=== PATIENT | female | born 1990 | race Caucasian/White ===

== ENCOUNTER 2020-05-28 07:58 | Emergency (ER) | payer MEDICAID ==
[2020-05-28 09:06] LABS: ABSOLUTE EOSINOPHILS # (AUTO) 0.2 10^3/uL (0.0-0.6); ABSOLUTE LYMPHOCYTES (AUTO) 1.7 10^3/uL (0.5-4.7); ABSOLUTE MONOCYTES (AUTO) 0.5 10^3/uL (0.1-1.4); ABSOLUTE NEUT (AUTO) 5.4 10^3/uL (1.7-8.2); BASOPHILS % (AUTO) 0.6 % (0-2); EOSINOPHILS % (AUTO) 2.5 % (0-6); HEMATOCRIT 41.2 % (36.0-47.0); HEMOGLOBIN 13.7 g/dL (12.0-15.5); MEAN CORPUSCULAR HEMOGLOBIN 28.9 pg (27.0-33.4); MEAN CORPUSCULAR HGB CONC 33.2 g/dL (32.0-36.0); MEAN CORPUSCULAR VOLUME 87 fl (80-97); MONOCYTES % (AUTO) 6.5 % (3-13); PLATELET COUNT 366 10^3/uL (150-450); RED BLOOD COUNT 4.74 10^6/uL (3.72-5.28); RED CELL DISTRIBUTION WIDTH 13.8 % (11.5-14.0); SEGMENTED NEUTROPHILS % (AUTO) 68.4 % (42-78); TOTAL CELLS COUNTED % (AUTO) 100 %; WHITE BLOOD COUNT 7.9 10^3/uL (4.0-10.5)
[2020-05-28] MEDS ORDERED: ONDANSETRON 4 MG TAB.RAPDIS PO ONE (09:15)
[2020-05-28 09:18] LABS: ALBUMIN 4.5 g/dL (3.5-5.0); ALKALINE PHOSPHATASE 95 U/L (38-126); ANION GAP 7 (5-19); ASPARTATE AMINO TRANSFERASE 20 U/L (14-36); BILIRUBIN,TOTAL 0.8 mg/dL (0.2-1.3); BLOOD UREA NITROGEN 11 mg/dL (7-20); CALCIUM 9.7 mg/dL (8.4-10.2); CARBON DIOXIDE 27 mmol/L (22-30); CHLORIDE 104 mmol/L (98-107); GLUCOSE 111 mg/dL (75-110); POTASSIUM 4.4 mmol/L (3.6-5.0); TOTAL PROTEIN 7.2 g/dL (6.3-8.2)
--- NOTE | 2020-05-28 09:22 | ER Document Report ---
ED General - General Chief Complaint: Flank Pain Stated Complaint: FLANK PAIN, PAINFUL URINATION Time Seen by Provider: 05/28/20 08:20 Notes: 30-year-old female with past medical history kidney stone, multiple UTIs. Presenting today with continued pain with urination, gross hematuria, bilateral flank pain for approximately 2-1/2 weeks. States she [facility] shot and oral medication for 7 days. She completed the medication but has continued to have pain with urination and now has developed the bilateral flank pain. She states she has had an intermittent fever at home. Says it was up to 101 yesterday which she took Tylenol for last dose of Tylenol was 5:30 PM. She is afebrile currently in the emergency department. She has no white or yellow vaginal discharge. States her discharge is normal. She states that she also now has intermittent tingling in her hands and her feet. She has Nexplanon. She was last sexually active 3 months ago. States her last menstrual period was 6 months ago. Denies any additional symptoms at this time. TRAVEL OUTSIDE OF THE [place] IN LAST 30 DAYS: No - Related Data Allergies/Adverse Reactions: No Known Allergies Allergy (Verified 02/26/17 11:57) Past Medical History - Social History Smoking Status: Never Smoker Frequency of alcohol use: None Drug Abuse: None Family History: Reviewed & Not Pertinent Renal/ Medical History: Denies: Hx Peritoneal Dialysis Psychiatric Medical History: Reports: Hx Anxiety, Hx Depression Past Surgical History: Reports: Hx Appendectomy - Immunizations Hx Diphtheria, Pertussis, Tetanus Vaccination: Yes Review of Systems - Review of Systems Constitutional: See HPI EENT: No symptoms reported Cardiovascular: No symptoms reported Respiratory: No symptoms reported Gastrointestinal: See HPI Genitourinary: See HPI Female Genitourinary: No symptoms reported Musculoskeletal: No symptoms reported Physical Exam - Vital signs Vitals: Temp Pulse Resp BP Pulse Ox 98.5 F 83 18 110/67 99 05/28/20 08:20 05/28/20 08:20 05/28/20 08:20 05/28/20 08:20 05/28/20 08:20 - Notes Notes: Adult General: GENERAL: Alert, interacts well. No acute distress HEAD: Normocephalic, atraumatic EYES: Pupils equal, round and reactive to light. Extraocular movements intact. ENT: Airway patent. Nares patent. NECK: Full range of motion. Supple. Trachea midline. LUNGS: Clear to auscultation bilaterally, no wheezes, rales, or rhonchi. No respiratory distress. Nontender chest wall. HEART: Regular rate and rhythm. No murmurs, rubs or gallops. ABDOMEN: Soft, nontender. Nondistended. (-) [place] sign. Bowel sounds present in all 4 quadrants. No rebound, guarding or masses. GENITOURINARY: Deferred EXTREMITIES: Moves all 4 extremities spontaneously. No edema, normal radial and dorsal pedis pulses bilaterally. No cyanosis. BACK: bilateral cva tenderness. No cervical, thoracic, lumbar midline tenderness. No saddle anesthesia, normal distal neurovascular exam. Moves all extremities with full range of motion. NEUROLOGICAL: Alert and oriented x3. Normal speech. Cranial nerves II through XII grossly intact. Strength 5/ 5 in all extremities. PSYCH: Normal affect, normal mood. SKIN: Warm, dry, normal turgor. No rashes or lesions noted. Course - Re-evaluation Re-evalutation: 05/28/20 22:52 I discussed findings of CT and urinalysis with the patient. Ct scan shows no significant findings to include no kidney infection or stone. Urinalysis is unremarkable. V/s are unremarkable. Patient is agreeable to self swab for a wet mount. Defers pelvic exam. Wet mount shows signs of bacterial vaginosis. I discussed findings with the patient. I also discussed that we are pending G/C testing. I will treat patient for bacterial vaginosis. I will also treat patient for a UTI based on her symptoms. Patient is agreeable to this plan. I also recommend patient follow up with her primary care as soon as possible. I also discussed return precautions to the emergency department to include worsening symptoms and the development of new symptoms. Patient acknowledges and verbalizes understanding of instructions and plan. 05/28/20 22:57 05/28/20 22:58 - Vital Signs Vital signs: Temp Pulse Resp BP Pulse Ox 98.2 F 71 16 102/64 99 05/28/20 11:36 05/28/20 11:36 05/28/20 11:36 05/28/20 11:36 05/28/20 11:36 - Laboratory Result Diagrams: 05/28/20 08:25 05/28/20 08:25 Laboratory results interpreted by me: 05/28/20 05/28/20 08:25 08:25 Glucose 111 H Urine Protein 30 H Urine Urobilinogen 2.0 H Discharge - Discharge Clinical Impression: Pain with urination, Bacterial vaginosis Condition: Stable Disposition: HOME, SELF-CARE Instructions: Metronidazole ([facility]), Toradol Injection ([facility]), Vaginosis, Bacterial ([facility]) Additional Instructions: You are being treated for bacterial vaginosis. Your CT scan shows no acute findings to include kidney stones or kidney infection. I will also go ahead and symptomatically treat you for UTI as I do have concerns that this is still an underlying cause of your symptoms at this time. We are pending the results of your cultures at this time. Please take medication as prescribed. Please do not drink alcohol with this medication. Follow-up with your primary care provider soon as possible. You may return to the emergency department if you have worsening symptoms or development of new symptoms. Prescriptions: Ketorolac Tromethamine [Toradol 10 mg Tablet] 10 mg PO Q6HP PRN 3 Days #10 tablet PRN Reason: Metronidazole [Flagyl 500 mg Tablet] 500 mg PO Q12 7 Days #14 tablet Cephalexin Monohydrate [Keflex 500 mg Capsule] 500 mg PO Q6H 5 Days #20 capsule Phenazopyridine HCl [Pyridium 200 mg Tablet] 200 mg PO TID #15 tablet
[2020-05-28 09:45] LABS: APPEARANCE,URINE SLIGHTLY-CLOUDY; BILIRUBIN,URINE NEGATIVE (NEGATIVE); CALCIUM OXALATE CRYSTALS,URINE FEW /HPF; COLOR,URINE DARK YELLOW; GLUCOSE, URINE NEGATIVE (NEGATIVE); KETONES,URINE NEGATIVE (NEGATIVE); LEUKOCYTE ESTERASE,URINE NEGATIVE (NEGATIVE); NITRITE,URINE NEGATIVE (NEGATIVE); PROTEIN,URINE 30 mg/dL (NEGATIVE); URINE SPECIFIC GRAVITY 1.028
--- NOTE | 2020-05-28 10:37 | RADIOLOGY REPORT (SQ) ---
EXAM DESCRIPTION: CT ABD/PELVIS NO ORAL OR IV IMAGES COMPLETED DATE/TIME: 05/28/2020 10:08 am REASON FOR STUDY: flank pain COMPARISON: None. TECHNIQUE: CT scan of the abdomen and pelvis performed without intravenous or oral contrast. Images reviewed with lung, soft tissue, and bone windows. Reconstructed coronal and sagittal MPR images revi ewed. All images stored on PACS. All CT scanners at this facility use dose modulation, iterative reconstruction, and/or weight based d osing when appropriate to reduce radiation dose to as low as reasonably achievable (ALARA). [facility]: Dose Right [facility]: CareDose [facility]: Dose Right [facility]: Teradose 4D [facility]: [place] RADIATION DOSE: CT Rad equipment meets quality standard of care and radiation dose reduction techniq ues were employed. CTDIvol: 7.7 mGy. DLP: 415 mGy-cm.mGy. LIMITATIONS: None. FINDINGS: LOWER CHEST: No significant findings. No nodules or infiltrates. NON-CONTRASTED LIVER, SPLEEN, ADRENALS: Evaluation limited by lack of IV contrast. No identified sign ificant masses. PANCREAS: No masses. No peripancreatic inflammatory changes. GALLBLADDER: No identified stones by CT criteria. No inflammatory changes to suggest cholecystitis. RIGHT KIDNEY AND URETER: No suspicious masses. Assessment limited by lack of IV contrast. No signif icant calcifications. No hydronephrosis or hydroureter. LEFT KIDNEY AND URETER: No suspicious masses. Assessment limited by lack of IV contrast. No signifi cant calcifications. No hydronephrosis or hydroureter. AORTA AND RETROPERITONEUM: No aneurysm. No retroperitoneal masses or adenopathy. BOWEL AND PERITONEAL CAVITY: No obvious masses or inflammatory changes. No free fluid. APPENDIX: Surgically absent. PELVIS, BLADDER, AND ABDOMINAL WALL:No abnormal masses. No free fluid. Bladder normal. BONES: There is lumbar scoliosis with concavity toward the right. OTHER: No other significant finding. IMPRESSION: NO SIGNIFICANT OR ACUTE PROCESS IN THE ABDOMEN OR PELVIS. COMMENT: Quality ID # [id number]: Final reports with documentation of one or more dose reduction techniques (e.g., Automated exposure control, adjustment of the mA and/or kV according to patient size, use of iterative reconstruction technique) TECHNICAL DOCUMENTATION: JOB ID: [id number] 2010 [employer]- All Rights Reserved Reading location - IP/workstation name: [email or web address]
[2020-05-28] MEDS ORDERED: NORMAL SALINE 1000 ML 1,000 ML IV ONE (10:39)
[2020-05-28] MEDS ORDERED: KETOROLAC TROMETHAMINE INJ/PF 30 MG/1 ML SDV IM ONE (10:43)
[2020-05-28] MEDS ORDERED: KETOROLAC TROMETHAMINE INJ/PF 30 MG/1 ML SDV IV ONE (10:48)
[2020-05-28 10:51] LABS: BACTERIA (WET MOUNT) 4+ BACTERIA SEEN; EPITHELIALS (WET MOUNT) 4+ EPITHELIALS SEEN; T.VAGINALIS (WET MOUNT) NO TRICHOMONAS SEEN; WBCS (WET MOUNT) RARE WBCS SEEN; YEAST (WET MOUNT) NO YEAST SEEN
[2020-05-28] MEDS ORDERED: CEFTRIAXONE INJ 1000 MG VIAL IV ONE (11:23)
[2020-05-28] MEDS ORDERED: CEFTRIAXONE 1 GM/D5W RTU 1 GM/50 ML RTUPB IV ONE (11:25)
[2020-05-28 11:39] VITALS: BP 102/64
[2020-05-28 11:51] LABS: CHLAM PCR NOT DETECTED (NOT DETECT)
== END 2020-05-28 12:18 | disposition home or self-care (01) ==
LOC: ER 07:58
DX: N76.0 Acute vaginitis (principal); B96.89 Other specified bacterial agents as the cause of diseases classified elsewhere; R30.0 Dysuria; R10.9 Unspecified abdominal pain; Z87.442 Personal history of urinary calculi; Z87.440 Personal history of urinary (tract) infections
CPT/HCPCS: 99284; 96361; 96375; 96365; 36415; 87086; 87210; 82550; 83690; 84703; 85025; 80053; 81001; 87491; 87591; 74176; S0119; J1885; J7030; J0696

== ENCOUNTER 2020-10-21 11:17 | Emergency (ER) | payer MEDICAID ==
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
--- NOTE | 2020-10-21 12:53 | RADIOLOGY REPORT (SQ) ---
EXAM DESCRIPTION: KNEE RIGHT 4 VIEWS IMAGES COMPLETED DATE/TIME: 10/21/2020 12:33 pm REASON FOR STUDY: R knee pain x 3 weeks, worse w/ time, no trauma COMPARISON: None. NUMBER OF VIEWS: Four views. TECHNIQUE: AP, lateral, and both oblique radiographic images acquired of the right knee. LIMITATIONS: None. FINDINGS: MINERALIZATION: Normal. BONES: No acute fracture or dislocation. No worrisome bone lesions. JOINT: Small effusion. SOFT TISSUES: No soft tissue swelling. No radio-opaque foreign body. OTHER: No other significant finding. IMPRESSION: Small joint effusion. TECHNICAL DOCUMENTATION: JOB ID: [id number] 2010 [employer]- All Rights Reserved Reading location - IP/workstation name: [email or web address]
[2020-10-21 13:17] LABS: AMORPHOUS SEDIMENT,URINE TRACE /HPF; APPEARANCE,URINE CLOUDY; BILIRUBIN,URINE NEGATIVE (NEGATIVE); COLOR,URINE AMBER; GLUCOSE, URINE NEGATIVE (NEGATIVE); KETONES,URINE NEGATIVE (NEGATIVE); LEUKOCYTE ESTERASE,URINE LARGE (NEGATIVE); NITRITE,URINE NEGATIVE (NEGATIVE); PROTEIN,URINE 100 mg/dL (NEGATIVE); URINE SPECIFIC GRAVITY 1.023; UROBILINOGEN,URINE NEGATIVE mg/dL (<2.0)
[2020-10-21] MEDS ORDERED: KETOROLAC TROMETHAMINE 60 MG/2 ML SDV IM ONE (13:47)
--- NOTE | 2020-10-21 13:47 | ER Document Report ---
ED General - General Chief Complaint: Vomiting Stated Complaint: PAINFUL URINATION,VOMITING Time Seen by Provider: 10/21/20 12:04 TRAVEL OUTSIDE OF THE [place] IN LAST 30 DAYS: No - Related Data Allergies/Adverse Reactions: No Known Allergies Allergy (Verified 10/21/20 12:02) Home Medications: multivitamins Past Medical History - Social History Smoking Status: Current Every Day Smoker Chew tobacco use (# tins/day): No Frequency of alcohol use: None Drug Abuse: None Family History: Reviewed & Not Pertinent Patient has homicidal ideation: No Renal/ Medical History: Denies: Hx Peritoneal Dialysis Psychiatric Medical History: Reports: Hx Anxiety, Hx Depression Past Surgical History: Reports: Hx Appendectomy - Immunizations Hx Diphtheria, Pertussis, Tetanus Vaccination: Yes Physical Exam - Vital signs Vitals: Temp Pulse Resp BP Pulse Ox 97.9 F 84 20 111/69 96 10/21/20 11:26 10/21/20 11:26 10/21/20 11:26 10/21/20 11:26 10/21/20 11:26 Course - Vital Signs Vital signs: Temp Pulse Resp BP Pulse Ox 97.9 F 84 20 111/69 96 10/21/20 11:26 10/21/20 11:26 10/21/20 11:26 10/21/20 11:26 10/21/20 11:26 - Laboratory Laboratory results interpreted by me: 10/21/20 12:32 Urine Protein 100 H Ur Leukocyte Esterase LARGE H
[2020-10-21 13:55] LABS: T.VAGINALIS (WET MOUNT) NO TRICHOMONAS SEEN; WBCS (WET MOUNT) FEW WBCS SEEN; YEAST (WET MOUNT) NO YEAST SEEN
[2020-10-21 14:06] LABS: ABSOLUTE BASOPHILS # (AUTO) 0.1 10^3/uL (0.0-0.2); ABSOLUTE EOSINOPHILS # (AUTO) 0.2 10^3/uL (0.0-0.6); ABSOLUTE LYMPHOCYTES (AUTO) 2.1 10^3/uL (0.5-4.7); ABSOLUTE MONOCYTES (AUTO) 0.4 10^3/uL (0.1-1.4); ABSOLUTE NEUT (AUTO) 6.2 10^3/uL (1.7-8.2); BASOPHILS % (AUTO) 0.6 % (0-2); EOSINOPHILS % (AUTO) 2.6 % (0-6); HEMOGLOBIN 13.7 g/dL (12.0-15.5); LYMPHOCYTES % (AUTO) 23.5 % (13-45); MEAN CORPUSCULAR HEMOGLOBIN 28.7 pg (27.0-33.4); MEAN CORPUSCULAR HGB CONC 33.5 g/dL (32.0-36.0); MEAN CORPUSCULAR VOLUME 86 fl (80-97); MONOCYTES % (AUTO) 4.7 % (3-13); PLATELET COUNT 374 10^3/uL (150-450); RED BLOOD COUNT 4.78 10^6/uL (3.72-5.28); RED CELL DISTRIBUTION WIDTH 13.4 % (11.5-14.0); SEGMENTED NEUTROPHILS % (AUTO) 68.6 % (42-78); TOTAL CELLS COUNTED % (AUTO) 100 %
--- NOTE | 2020-10-21 14:08 | ER Document Report ---
ED GI/ - General Chief Complaint: Vomiting Stated Complaint: PAINFUL URINATION,VOMITING Time Seen by Provider: 10/21/20 12:04 Primary Care Provider: SARA SINGLETON MD [ACTIVE STAFF] - Follow up as needed GURINDER FERRER DO [ACTIVE STAFF] - Follow up as needed TRAVEL OUTSIDE OF THE [place] IN LAST 30 DAYS: No - HPI Notes: 10/21/20 14:04 Patient is a 30-year-old female who presents with multiple complaints. Patient states that her partner cheated on her about 1 month ago. She states that about 1 month ago, she had white vaginal discharge and dysuria. She attributed this to a yeast infection so she took [id number] medication and it resolved. Patient states that symptoms returned several days ago. She states she has a white thin discharge. She also states she has some hematuria and dysuria. Patient denies fevers or chills. She mentions that she has had several weeks of right knee pain that is worse with movement and feels achy. She denies any redness. No trauma. Patient states she took Tylenol. She is concerned that she may have an STD. Patient states she does have a history of herpes. 10/21/20 21:22 - Related Data Allergies/Adverse Reactions: No Known Allergies Allergy (Verified 10/21/20 12:02) Home Medications: multivitamins Past Medical History - General Information source: Patient - Social History Smoking Status: Current Every Day Smoker Chew tobacco use (# tins/day): No Frequency of alcohol use: None Drug Abuse: None Family History: Reviewed & Not Pertinent Patient has homicidal ideation: No Renal/ Medical History: Denies: Hx Peritoneal Dialysis Psychiatric Medical History: Reports: Hx Anxiety, Hx Depression Past Surgical History: Reports: Hx Appendectomy - Immunizations Hx Diphtheria, Pertussis, Tetanus Vaccination: Yes Review of Systems - Review of Systems Notes: CONSTITUTIONAL: No fever, fatigue or weight loss. SKIN: No rash. HENT: No congestion, ear pain, or sore throat. EYES: No recent vision problems or eye pain. CARDIOVASCULAR: No chest pain or edema. RESPIRATORY: No cough, shortness of breath, congestion, or wheezing. GASTROINTESTINAL: No abdominal pain, nausea, vomiting, bloody stools or diarrhea. GENITOURINARY: Positive for dysuria and vaginal discharge. MUSCULOSKELETAL: Positive for right knee pain. NEUROLOGIC: No seizures. No headache, focal weakness or sensory changes. HEMATOLOGIC: No unusual bruising or bleeding. PSYCHIATRIC: No depression or anxiety. Physical Exam - Vital signs Vitals: Temp Pulse Resp BP Pulse Ox 97.9 F 84 20 111/69 96 10/21/20 11:26 10/21/20 11:26 10/21/20 11:26 10/21/20 11:26 10/21/20 11:26 - General General appearance: Appears well Notes: VITAL SIGNS: Within normal limits. GENERAL: No acute distress, non-toxic appearance. HEAD: Normal with no signs of head trauma. EYES: Conjunctiva normal, no discharge. EARS: Hearing grossly intact. NECK: Normal range of motion, no tenderness, supple, no lymphadenopathy, No adenopathy, no JVD. CHEST: Clear breath sounds bilaterally. No wheezes, rales, or rhonchi. CARDIAC: Regular rate and rhythm. S1 and S2, without murmurs, gallops, or rubs. VASCULAR: No Edema. Peripheral pulses normal and equal in all extremities. ABDOMEN: Normal and soft with no tenderness, no masses or pulsatile masses. GASTROINTESTINAL: Bowel sounds normal GENITOURINARY: Pelvic exam performed with female reservations sales supervisor. Thin white vaginal discharge noted. Cervix appears normal. No rashes. MUSCULOSKELETAL: Good range of motion of all major joints. Active and passive range of motion intact to the right knee. No erythema or obvious effusion on exam. No swelling. NEUROLOGICAL: Alert and oriented x 3. No focal sensory or strength deficits. Speech normal. Follows commands appropriately. PSYCHIATRIC: Normal Affect, judgement and mood. SKIN: Normal appearance with no rashes or lesions. Course - Re-evaluation Re-evalutation: 10/21/20 21:23 Patient's gonorrhea and Chlamydia were negative. Her wet mount is suspicious for bacterial vaginosis as she does have a thin white vaginal discharge on exam and a few white blood cells. Her urine is also suspicious for UTI. She will be given Keflex and Flagyl. I did order a ultrasound of the right leg as she has some pain behind the knee to rule out a DVT but patient states she has to go home and black pickler her kids. She does not want this test done and just wants to go home. Her knee exam is normal. She has good range of motion and no effusion or redness. She has no fever. White blood cell count is normal. I have low suspicion for septic joint. There is a small effusion on her x-ray. I did instruct her to rest and elevate and ice the extremity. She was told to take Tylenol and ibuprofen as directed. Patient was given strict return precautions to return immediately for any fevers, redness, abdominal pain, any other concern ing symptoms. - Vital Signs Vital signs: Temp Pulse Resp BP Pulse Ox 97.8 F 78 18 101/72 99 10/21/20 16:07 10/21/20 16:07 10/21/20 16:07 10/21/20 16:07 10/21/20 16:07 - Laboratory Result Diagrams: 10/21/20 13:35 10/21/20 13:35 Laboratory results interpreted by me: 10/21/20 10/21/20 12:32 13:35 Potassium 5.1 H Glucose 111 H Urine Protein 100 H Ur Leukocyte Esterase LARGE H - Diagnostic Test Radiology reviewed: Image reviewed, Reports reviewed Discharge - Discharge Clinical Impression: Vaginal discharge, Bacterial vaginosis, Effusion, right knee Condition: Stable Disposition: HOME, SELF-CARE Instructions: Knee Effusion ([facility]), Vaginosis, Bacterial ([facility]) Additional Instructions: Please take your antibiotics as prescribed. Please follow-up with your family doctor. I will also give you the number for orthopedics for the knee pain/effusion You may take Tylenol and ibuprofen. Please return to the ER for any fevers, redness or worsening symptoms. Prescriptions: Metronidazole [Flagyl 500 mg Tablet] 500 mg PO BID 7 Days #14 tablet Cephalexin Monohydrate [Keflex 500 mg Capsule] 500 mg PO BID 7 Days #14 capsule Referrals: SARA SINGLETON MD [ACTIVE STAFF] - Follow up as needed GURINDER FERRER DO [ACTIVE STAFF] - Follow up as needed
[2020-10-21 14:26] LABS: ALBUMIN 4.7 g/dL (3.5-5.0); ALKALINE PHOSPHATASE 113 U/L (38-126); ANION GAP 9 (5-19); ASPARTATE AMINO TRANSFERASE 22 U/L (14-36); BILIRUBIN,TOTAL 0.5 mg/dL (0.2-1.3); BLOOD UREA NITROGEN 12 mg/dL (7-20); CARBON DIOXIDE 28 mmol/L (22-30); CHLORIDE 101 mmol/L (98-107); GLUCOSE 111 mg/dL (75-110); POTASSIUM 5.1 mmol/L (3.6-5.0); TOTAL PROTEIN 7.5 g/dL (6.3-8.2)
[2020-10-21 15:19] LABS: CHLAM PCR NOT DETECTED (NOT DETECT)
[2020-10-21] MEDS ORDERED: METRONIDAZOLE 500 MG TABLET PO ONE (15:34)
[2020-10-21] MEDS ORDERED: CEPHALEXIN 500 MG CAPSULE PO ONE (16:00)
[2020-10-21 16:08] VITALS: BP 101/72
== END 2020-10-21 16:08 | disposition home or self-care (01) ==
LOC: ER 11:17
DX: N76.0 Acute vaginitis (principal); B96.89 Other specified bacterial agents as the cause of diseases classified elsewhere; R11.10 Vomiting, unspecified; R30.0 Dysuria; F17.200 Nicotine dependence, unspecified, uncomplicated
CPT/HCPCS: 99284; 96372; 36415; 87086; 87210; 85025; 81025; 87088; 80053; 81001; 87186; 87491; 87591; 73564; J1885; J3490